=== PATIENT | male | born 1980 | race Hispanic/Latino ===

== ENCOUNTER 2024-07-19 09:38 | Emergency (ER) | payer OTHER ==
[~2024-07-19] VITALS: Ht 177.8 cm; Wt 112.8 kg
[2024-07-19 10:06] LABS: BASO % 0.3 % (0.0-1.0); EOS % 0.4 % (0.0-3.0); HEMATOCRIT 45.8 % (42.0-52.0); HEMOGLOBIN 15.4 g/dl (13.5-17.5); LYMPH # 2.4 10^3/uL (1.5-5.0); LYMPH % 24.8 % (24.0-44.0); MEAN CORPUSCULAR HGB CONC 33.6 g/dl (32.0-36.5); MEAN CORPUSCULAR VOLUME 80.2 fl (80.0-96.0); MONO # 0.6 10^3/uL (0.0-0.8); MONO % 6.4 % (2.0-8.0); NEUTROPHILS # 6.6 10^3/uL (1.5-8.5); NEUTROPHILS % 67.8 % (36.0-66.0); PLATELET COUNT, AUTOMATED 262 10^3/uL (150-450); RED BLOOD COUNT 5.71 10^6/uL (4.30-6.10); WHITE BLOOD COUNT 9.7 10^3/uL (4.0-10.0)
[2024-07-19] MEDS: NITROGLYCERIN 0.4MG SUBL TABLET SL PRN (10:11)
[2024-07-19 10:31] LABS: BLOOD UREA NITROGEN 16 MG/DL (9-23); CALCIUM LEVEL 9.6 MG/DL (8.5-10.1); CARBON DIOXIDE LEVEL 26 MMOL/L (20-31); CHLORIDE LEVEL 106 MMOL/L (98-107); CK-MB VALUE MASS < 1.0 NG/ML (<3.6); CPK CREATINE PHOSPHOKINASE 178 U/L (46-171); CREATININE FOR GFR 1.05 MG/DL (0.70-1.30); GLOMERULAR FILTRATION RATE > 60.0 (>60); GLUCOSE, FASTING 112 MG/DL (60-100); MB/CK RELATIVE INDEX 0.56 (< OR =4); SODIUM LEVEL 138 MMOL/L (136-145)
[2024-07-19] MEDS ORDERED: HOME MED LIST COMPLETE! XX SCH (10:50)
[2024-07-19] MEDS ORDERED: ISOVUE-370 76% 100ML VIAL As Ordered ONE (10:55)
[2024-07-19 11:34] LABS: CK-MB VALUE MASS < 1.0 NG/ML (<3.6)
[2024-07-19 11:36] LABS: CPK CREATINE PHOSPHOKINASE 173 U/L (46-171); MB/CK RELATIVE INDEX 0.57 (< OR =4)
[2024-07-19] MEDS: HEPARIN SOD (PORCINE) 5000UNITS/ML 1ML VIAL/SYRINGE IV ONE (15:07)
[2024-07-19] MEDS: HEPARIN DRIP 25,000 UNITS in IV 1 EA IV SCH (15:08)
[2024-07-19 15:11] VITALS: BP 131/77
[2024-07-19] MEDS: NITROGLYCERIN 2% OINT 1 GM *U/D* PKT TOP ONE (15:11)
[2024-07-19 17:56] VITALS: BP 138/82; TEMP 97.5; O2SAT 96
== END 2024-07-19 18:00 | disposition short-term general hospital (02) ==
LOC: EDBD 09:38 → M ED 09:38
DX: I21.4 Non-ST elevation (NSTEMI) myocardial infarction (principal); I10 Essential (primary) hypertension; E78.5 Hyperlipidemia, unspecified
CPT/HCPCS: 71045; 71275; 80048; 82550; 82553; 84484; 85025; 85730; 93005; 93041; 94760; 96374; 99285; Q9967